=== PATIENT | male | born 1955 | race Caucasian/White ===

== ENCOUNTER 2020-03-13 09:05 | Outpatient (CLI) | payer MEDICARE, OTHER, SELFPAY ==
--- NOTE | ~2020-03-13 | PE_ITS ---
EXAMINATION: PET skull to mid thigh DATE: 03/13/2020 10:53 INDICATION: Lung cancer TECHNIQUE: Blood glucose level was 104 mg/dL. 10.485 mCi of 18-fluorodeoxyglucose (18-FDG) was admini stered i.v. Low dose computed tomography (CT) images were acquired from the base of the brain to the proximal thighs for attenuation correction and anatomic localization. Positron emission tomography (P ET) images were acquired in the same distribution beginning 52 minutes after injection. The dose-philip th product (DLP) was 288.63 mGy-cm. COMPARISON: None FINDINGS: Head/neck: FDG activity in the parotid and submandibular glands, the base of the tongue, the pharynx, and the thyroid without suspicious CT correlate is likely physiologic. No abnormal FDG uptake is yue ntified. Chest: There is severe emphysema. An 8mm nodule is present in the right lower lobe which demonstrates low-level FDG uptake with an SUV max of 1.4, or consistent with infection or inflammation rather micki n malignancy. There is a 5 mm nodule of the right upper lobe on image 253 without FDG uptake. A 6 mm nodule of the left upper lobe on image 237 also does not demonstrate FDG uptake. There is no pleural effusion or pneumothorax. Calcified coronary artery atherosclerosis is noted. No pathologically enlar ged thoracic lymph nodes are identified. The heart size is normal. There is a moderate-sized sliding hiatal hernia. Abdomen/pelvis/proximal thighs: Physiologic FDG activity is present in the bowel and urinary tract. T here is greater than expected FDG uptake along the greater curvature of the stomach with questionable associated wall thickening, somewhat difficult to assess in the absence of gastric distention. There is a 3.6 cm cyst in liver segment Puneet. The spleen, pancreas, gallbladder, and adrenal glands are nor mal. There is a 1.7 cm cyst of the left kidney. The right kidney is unremarkable. No pathologically e nlarged abdominal or pelvic lymph nodes are identified. There is no free intraperitoneal gas or evide nce of bowel obstruction. There is calcified atherosclerosis of the aorta and many of the other arter ies. There is mild circumferential thickening of the bladder wall which may be due to incomplete dist ention, chronic cystitis, or chronic outlet obstruction. Musculoskeletal: No abnormal FDG uptake is identified. IMPRESSION: 1. 8mm nodule of the right lower lobe with low-level FDG uptake, more consistent with infection/infla mmation than malignancy. Follow-up CT in three months is recommended. 2. Severe emphysema. 3. Greater than expected FDG uptake in the greater curvature of the stomach. Findings could be physio logic and related to incomplete distention however consider further evaluation with endoscopy. Reviewed, dictated and finalized at location A. IMPRESSION: 1. 8mm nodule of the right lower lobe with low-level FDG uptake, more consisten t with infection/inflammation than malignancy. Follow-up CT in three months is recommended. 2. Severe emphysema. 3. Greater than expected FDG uptake in the greater curvature of the stomach. Fi ndings could be physiologic and related to incomplete distention however consid er further evaluation with endoscopy.
[2020-03-13 09:33] LABS: Glucose Point of Care 104 (65-105)
== END 2020-03-13 09:06 | disposition home or self-care (01) ==
PROVIDERS: PCP Internal Medicine; Visit Provider Internal Medicine
DX: R91.1 Solitary pulmonary nodule (principal)
CPT/HCPCS: 78815; A9552

== ENCOUNTER 2021-08-21 01:04 | Day surgery (SDC) | payer MEDICARE, SELFPAY ==
[2021-08-12 13:12] VITALS: BMI 21.5
--- NOTE | 2021-08-20 13:19 | P.HP_ITS ---
History of Present Illness History of Present Illness Consent: Risks, benefits, and alternatives have been discussed and questions answered. Patient agrees to proceed with procedure. Chief complaint: neoplasm screening Narrative: Jeff Whitmore is a 65 year old male Referred for colon cancer screening. Review of Systems Review of Systems: All systems reviewed & are unremarkable except as noted in HPI and below PMFSH Past Medical History Medical History COPD (chronic obstructive pulmonary disease) Hypertension Tobacco abuse Social History Social History Smoking packs per day: 2 Smoking cigarettes per day: 40.0 Years smoked: 50 Smoking pack-years: 100.00 Tobacco type: cigarettes Living arrangements: with family Meds Home Medications and Allergies Home Medications Medication Instructions Recorded Confirmed Type Vitamin D2 08/12/21 History aspirin 81 mg PO DAILY 08/12/21 08/12/21 History lisinopril 20 mg PO DAILY 08/12/21 08/12/21 History Allergies Allergy/AdvReac Type Severity Reaction Status Date / Time No Known Allergies Allergy Verified 08/21/21 08:04 Exam Const: General: alert Orientation/consciousness: patient oriented x3 Resp: Auscultation: clear to auscultation bilaterally Cardio: Rhythm: regular rhythm GI: GI Palp: Yes Soft to palpation and No Tenderness to palpation present (GI) Neuro: General: patient oriented x3 Assessment and Plan Assessment and plan (1) Colon cancer screening: Code(s): Z12.11 - Encounter for screening for malignant neoplasm of colon Status: Acute Assessment and Plan: Colonoscopy with possible biopsy or polypectomy or cautery or injection of subst ances.
[2021-08-21 08:05] VITALS: BP 136/73; PULSE 68; RESP 20; TEMP 36.3; O2SAT 95; BMI 20.5
[2021-08-21] MEDS: LACTATED RINGERS 1,000 ML 150 ML IV CONT (08:09)
--- NOTE | 2021-08-21 08:20 | WPDANESEPPF ---
Anes - Initial Pre Proc Eval Procedure: Operation Date: 08/21/21 09:00 Proposed Procedures p Screening Colonoscopy - Anselmo Galloway MD Date/Time: 08/21/21 08:20 Surgeon: Anselmo Galloway MD Pre Op Diagnosis: neoplasm screening Patient Data Age: 65 Gender: M Height: 1.8 m Weight: 66.9 kg Last Vital Signs Temp 36.3 C L 08/21/21 08:05 Pulse 68 08/21/21 08:05 Resp 20 08/21/21 08:05 BP 136/73 08/21/21 08:05 Pulse Ox 95 08/21/21 08:05 Allergies Allergy/AdvReac Type Severity Reaction Status Date / Time No Known Allergies Allergy Verified 08/21/21 08:04 Home Medications Medication Instructions Recorded Confirmed Type Vitamin D2 08/12/21 History aspirin 81 mg PO DAILY 08/12/21 08/12/21 History lisinopril 20 mg PO DAILY 08/12/21 08/12/21 History Patient hx anesthesia problems: none Family hx anesthesia problems: none Results Review: All pre-operative results and documents have been reviewed as part of the pre-operative evaluation. [facility] Past Medical History Medical History COPD (chronic obstructive pulmonary disease) Hypertension Tobacco abuse Social History Social History Smoking packs per day: 2 Smoking cigarettes per day: 40.0 Years smoked: 50 Smoking pack-years: 100.00 Tobacco type: cigarettes Living arrangements: with family Anes - Eval Final PreProcedure Day of Procedure 08/21/21 08:20 Patient weight: normal Heart: regular rate and rhythm Lungs: decreased breath sounds Airway: Mallampati scale class II Neurological: alert and oriented Last oral intake: >/= 8 hours ASA classification: III Emergent: no Anesthetic plan: proceed Anesthesia type and monitoring: general GIVS and standard monitoring Results Review: All pre-operative results and documents have been reviewed as part of the pre-operative evaluation. Informed Consent: The patient's anesthetic plan and its attendant risks and benefits were discussed with the patient/family/POA. Questions were solicited and answers provided to the satisfaction of the patient/family/POA.
[2021-08-21 09:08] VITALS: BP 136/113; PULSE 84; RESP 18; O2SAT 97
[2021-08-21 09:18] VITALS: BP 90/53; PULSE 74; RESP 23; O2SAT 98
[2021-08-21 09:28] VITALS: BP 100/61; PULSE 75; RESP 21; O2SAT 100
== END 2021-08-21 09:39 | disposition home or self-care (01) ==
PROVIDERS: PCP Internal Medicine; Visit Provider Internal Medicine Gastroenterology
PROC: 0DJD8ZZ Inspection of Lower Intestinal Tract, Via Natural or Artificial Opening Endoscopic (ICD-10-PCS; CPT 45378; principal; 2021-08-21 09:00)
DX: Z12.11 Encounter for screening for malignant neoplasm of colon (principal); D12.2 Benign neoplasm of ascending colon; D12.8 Benign neoplasm of rectum; J44.9 Chronic obstructive pulmonary disease, unspecified; I10 Essential (primary) hypertension; F17.210 Nicotine dependence, cigarettes, uncomplicated
CPT/HCPCS: 45384; 45381; 45388; 88305; J2704; J7120

== ENCOUNTER 2024-01-02 08:48 | Outpatient (CLI) | payer MEDICARE, SELFPAY ==
--- NOTE | ~2024-01-02 | PE_ITS ---
EXAMINATION: PET skull to mid thigh DATE: 01/02/2024 11:17 INDICATION: Solitary pulmonary nodule TECHNIQUE: Blood glucose level was 107 mg/dL. 11.061 mCi of 18-fluorodeoxyglucose (18-FDG) was admini stered i.v. Low dose computed tomography (CT) images were acquired from the base of the brain to the proximal thighs for attenuation correction and anatomic localization. Positron emission tomography (P ET) images were acquired in the same distribution beginning 62 minutes after injection. Images includ ing fused PET/CT images were reconstructed in axial, coronal, and sagittal planes. Automated exposure control technique was employed. The dose-length product was 685.48mGy-cm. COMPARISON: 03/13/2020 FINDINGS: Head/neck: There is symmetric increased activity in the oral cavity, palatine tonsils, parotid glands, submandi bular glands, laryngeal muscles and ocular muscles without CT correlate, likely physiologic. There is increased FDG uptake with maximal SUV of 7.2 associated with approximately 1.7 x 1.0 cm nodule at th e cephalad right thyroid. No pathologically enlarged cervical lymphadenopathy or other suspicious foc i of increased FDG uptake in the visualized head or neck. Chest: Emphysema with chronic biapical pleural-parenchymal scarring without associated FDG activity. No sign ificant interval change attending for differences in technique in an 8-9 mm right lower lobe nodule w ith persistent mild FDG uptake with maximal SUV of 2.2 which remains less than the level of the blood pool. Decrease in size of a now 4 mm right upper lobe nodule which remains without FDG activity. Mil d scattered discoid atelectasis in both lungs. No other new or enlarging pulmonary nodules, pneumonia , pulmonary edema or pleural effusion. Heart size is normal. No pericardial effusion. Atherosclerotic coronary artery calcification. Thoracic aorta is normal in caliber. Small sliding-type hiatal hernia with mild to moderate uptake diffusely along the distal half of the thoracic esophagus without evide nt abnormal wall thickening most likely mild esophagitis related to reflux. No pathologically enlarge d or FDG avid thoracic lymphadenopathy. Abdomen/pelvis/proximal thighs: Physiologic renal accumulation and excretion of FDG activity in the kidneys, bladder and along portio ns of ureters. 1.8 cm low-attenuation photopenic left renal cyst. There is a small focus of more prom inent uptake with maximal SUV of 4.2 in the region of the caudal aspect of the gallbladder fossa with out evident correlate in either the liver or gallbladder. There does appear to be a possible gallston e in the dependent aspect of the relatively decompressed gallbladder. Otherwise normal degree and het erogenous pattern of increased uptake throughout the liver. The pancreas, spleen and bilateral adrena l glands are normal. Mild uptake scattered throughout the bowels without radiologic correlate, also l ikely physiologic. Prostatomegaly. No other abnormal foci of increased FDG uptake or pathologically e nlarged lymphadenopathy in the abdomen, pelvis or proximal thighs. Musculoskeletal: Thoracolumbar dextrocurvature with mild spondylosis. Minimal likely synovial activity along the anter osuperior margin of the left femoral neck without evident radiologic correlate. No suspicious lytic, blastic or abnormally FDG avid bone lesions. IMPRESSION: 1. No interval change in size or very mild uptake at an 8-9 mm right lower lobe nodule which given th e nearly 4 years of stability strongly favors a benign etiology or sequela of old granulomatous disea se or hamartoma. 2. 1.7 cm FDG avid right thyroid nodule. Recommend thyroid ultrasound for risk stratification. 3. Small sliding-type hiatal hernia with diffuse mild to moderate uptake along the distal half of the thoracic esophagus without evident mass or definitive wall thickening which suggests esophagitis suc h as in the setting of reflux.
[2024-01-02 09:28] LABS: Glucose Point of Care 107 mg/dl (65-105)
== END 2024-01-02 08:49 | disposition home or self-care (01) ==
PROVIDERS: PCP Internal Medicine; Visit Provider Internal Medicine
DX: R91.1 Solitary pulmonary nodule (principal); K80.20 Calculus of gallbladder without cholecystitis without obstruction; K44.9 Diaphragmatic hernia without obstruction or gangrene
CPT/HCPCS: 78815; A9552

== ENCOUNTER 2025-05-07 12:33 | Outpatient (CLI) | payer MEDICARE, SELFPAY ==
--- NOTE | ~2025-05-07 | US_ITS ---
EXAMINATION: US thyroid DATE: 05/07/2025 13:36 INDICATION: Thyroid nodule TECHNIQUE: Multiple ultrasound images of the thyroid were obtained. COMPARISON: None. FINDINGS: The right thyroid lobe measures 4.2 x 1.9 x 1.8 cm. The left thyroid lobe measures 3.6 x 1.3 x 1.1 cm. There are couple solid isoechoic wider than tall nodules with smooth margins and without echogenic foci in the superior right thyroid lobe, the larger measuring 2.3 cm in maximal diameter and the smaller measuring 9 mm (TI-RADS 3, mildly suspicious , FNA if >=2.5 cm, annual followup is >=1.5 cm) . There is normal echotexture, echogenicity and vascular flow throughout the remainder of the thyroid gland. IMPRESSION: 1. A couple TI RADS 3 nodules in the right thyroid lobe larger measuring 2.3 cm for which annual ultrasound follow-up would be recommended. Reviewed, dictated and finalized at location A.
--- NOTE | ~2025-05-07 | CT_ITS ---
EXAMINATION:CT lung screening DATE: 05/07/2025 13:06 INDICATION: Personal history of nicotine dependence. TECHNIQUE: Computed tomography (CT) of the chest was performed without intravenous contrast. Automated exposure control and iterative reconstruction technique were employed. The dose-length product (DLP) was 79.97 mGy-cm. COMPARISON: PET/CT 03/13/2020 FINDINGS: There is scarring at the lung apices. There is moderate emphysema. There are a few scattered nodules measuring up to 3 mm. There are a few scattered stable 4 mm nodules. There is a 9 mm nodule in right lower lobe, stable from 03/13/2020. There is mild bronchiectasis in right middle lobe. There is a stable 5 mm nodule in right upper lobe. There is a stable 5 mm nodule in right upper lobe. No pleural effusion. The heart size is normal. There are coronary artery calcifications. No pericardial effusion. There is a small sliding hiatal hernia. There is a 4.4 cm cyst in the liver. There is mild t horacic spondylosis. There is a chronic compression fracture of T11. IMPRESSION: 1. Lung-RADS category 2: Benign appearance or behavior. Continue annual screening with noncontrast low-dose chest CT in 12 months. Reviewed, dictated and finalized at location E. IMPRESSION: 1. Lung-RADS category 2: Benign appearance or behavior. Continue annual screeni ng with noncontrast low-dose chest CT in 12 months.
--- OUTSIDE RECORDS SUMMARY | 2025-05-07 14:14 | XMS_ITS | Data Portability ---
Author Organization [facility] [employer], Main Office Address [address] [place] [address] Assessment No assessment recorded. Plan of Treatment Reminders Order Date Submit Date Provider Last Modified By Organization Details Last Modified Time Details Appointments Any 15 2025 09:30A M Jefe Olson MD Not available Not available Not available Lab TSH, serum or plasma [address] (Lab), [address] [place], [address], 01/04/2025 14:17:04 PTH (parathyr oid hormone), intact + calcium, serum or plasma [address] (Lab), [address] [place], [address], 01/04/2025 14:17:03 PSA, serum or plasma [address] (Lab), [address] [place], [address], 01/04/2025 14:17:04 unlisted lab - CBC study [address] (Lab), [address] [place], [address], 01/04/2025 14:17:04 vitamin D, 25-hydrox y, total, serum [address] (Lab), [address] [place], [address], 01/04/2025 14:17:04 CMP, serum or plasma 2024 025 [facility] (Lab), [address] [place], [address], 12/24/2024 18:25:43 Referral None recorded. Procedures None recorded. Surgeries None recorded. Imaging LDCT, chest, for lung cancer screening - Please call patient to schedule. [email or web address] [place] [address] (Imaging), [address] [facility] [address] [place] [address], [phone], 01/22/2025 12:34:48 PET-CT, skull base to mid-thigh scan - approved [id number] 12/27/23-2023 [email or web address] [place] [address] (Imaging), [address] [facility] [address] [place] [address], [phone], 01/03/2024 09:03:11 Medication Orders lisinopri l 20 mg-hydroc hlorothia zide 12.5 mg tablet 2024 025 MEALLY [facility], [address], [id number], 08/21/2024 14:57:10 Patient TargetsNo targets recorded. Patient Instructions Encounter Date Encounter Id Patient Instructions Last Modified By Organization Details Last Modified Time 03/19/2024 [id number] dementia rating scale-2* Not available 03/19/2024 14:12:31 depression screening* Not available 03/19/2024 14:12:31 alcohol misuse* Not available 03/19/2024 14:12:31 multi-dimensiona l health assessment questionnaire* Not available 03/19/2024 14:12:31 Personalized a lt Plan and Screening Recommendations Advance Directives - Do you have one? Yes You have indicated that you are capable of preparing your advance care directive Advance Directives - Do we have your advance directive on file in your health record? No, please bring in a copy at your earliest convenience Primary Prevention/Interven tion (prevents or decreases the chance of common diseases from occurring) Smoking Risk: Smoker Refer to attached smoking cessation handouts Alcohol Misuse Screening: Negative Weight: Appropriate Physical activity: Appropriate physical activity Nutrition: Average Refer to attached handout Heart-Healthy Diet: After Your Visit Fall Risk (screened today): Low Vaccines Pneumococcal: No further needed Influenza: Your next one in the fall of this year Chronic Disease Risks Stroke: Low Risk Active diagnosis, Continue current treatment plan Heart Attack: Low risk I have no recommendations Clogging of the Arteries: Low risk I have no recommendations Diabetes: Low Risk I have no recommendations Secondary Prevention/Interven tion (detects treatable diseases before they may cause symptoms, disability, or ) Prostate Cancer Screening: Your next PSA in:2024 Colon Cancer Screening: Date Screening Last Performed: Eye Disease Screening: No Eye exam necessary Dementia Risk: Low I have no recommendations Depression Screening: Negative I have no recommendations [email or web address] Not available 03/19/2024 11:17:00 Reason for Referral None Reported. Results Created Date Observation Date Name Description Value Unit Range Abnormal Flag Note LastModifiedBy Organization Detail LastModifiedTime 11/14/19 24 11/14/2023 COMPR EHENS ROMEL METAB OLIC PANEL sodium 138 mmol/ L 137-14 5 Not Available [facility] (Lab) [address] [place], [address], 11/14/2023 21:05:55 11/14/1911/14/2023 COMPR EHENS ROMEL METAB OLIC PANEL potassium 4.7 mmol/ L 3.5-5. 1 Not Available [facility] (Lab) [address] [place], [address], 11/14/2023 21:05:55 11/14/19 24 11/14/2023 COMPR EHENS ROMEL METAB OLIC PANEL chloride 100 mmol/ L 98-107 Not Available [facility] (Lab) [address] [place], [address], 11/14/2023 21:05:55 11/14/19 24 11/14/2023 COMPR EHENS ROMEL METAB OLIC PANEL carbon dioxide 32 mmol/ L 22-30 high Not Available [facility] (Lab) [address] [place], [address], 11/14/2023 21:05:55 11/14/19 24 11/14/2023 COMPR EHENS ROMEL METAB OLIC PANEL anion gap 10.7 mmol/ L 14-22 low Not Available [facility] (Lab) [address] [place], [address], 11/14/2023 21:05:55 11/14/19 24 11/14/2023 COMPR EHENS ROMEL METAB OLIC PANEL glucose 91 mg/dL 70-99 Not Available [facility] (Lab) [address] [place], [address], 11/14/2023 21:05:55 11/14/19 24 11/14/2023 COMPR EHENS ROMEL METAB OLIC PANEL BUN 16 mg/dL 8-19 Not Available [facility] (Lab) [address] [place], [address], 11/14/2023 21:05:55 11/14/19 24 11/14/2023 COMPR EHENS ROMEL METAB OLIC PANEL creatinine 1.20 mg/dL 0.66-1 .25 Not Available [facility] (Lab) [address] [place], [address], 11/14/2023 21:05:55 11/14/19 24 11/14/2023 COMPR EHENS ROMEL METAB OLIC PANEL GFR 60 Refer ence Range : [place] ge GFR Healt hy Adult : >60 mL/mi n/1.7 3 m2 Chron ic Kidne y Disea se: 15-60 mL/mi n/1.7 3 m2 Kidne y Failu re: <15/m L/min /1.73 m2 www.n iddk. nih.g ov The MDRD study equat ion has not been valid ated in child joel <18 years of age; pregn ant women ; the elder ly >85 years of age; or in some racia l or ethni c subgr oups, such as Hispa nics. Outsi de the valid ated cielo eters , estim ated GFR is less accur ate, requi ring clini larry judgm ent on a case- by-ca se basis . Clini larry inter preta tion for other races and ages must be made by the clini jose. The MDRD study equat ion has not been valid ated for the evalu ation of serum creat inine relat ed to nutri uriel l statu s or medic ation usage . For perso ns <18 years of age, a pedia tric GFR calcu lator is avail able on the [facility] websi te: https ://aida altman.o rg/pr ofess ional s/kdo qi/gf r_cal culat or Not Available [facility] (Lab) [address] [place], [address], 11/14/2023 21:05:55 11/14/19 24 11/14/2023 COMPR EHENS ROMEL METAB OLIC PANEL alkaline phosphatase 148 U/L 38-[address] [facility] (Lab) [address] [place], [address], 11/14/2023 21:05:55 11/14/19 24 11/14/2023 COMPR EHENS ROMEL METAB OLIC PANEL alanine aminotransfe rase 13 U/L 0-50 Not Available [facility] (Lab) [address] [place], [address], 11/14/2023 21:05:55 11/14/19 24 11/14/2023 COMPR EHENS ROMEL METAB OLIC PANEL aspartate aminotransfe rase 23 U/L 15-46 Not Available [facility] (Lab) [address] [place], [address], 11/14/2023 21:05:55 11/14/19 24 11/14/2023 COMPR EHENS ROMEL METAB OLIC PANEL bilirubin, total 1.00 mg/dL 0.20-1 .30 Not Available [facility] (Lab) [address] [place], [address], 11/14/2023 21:05:55 11/14/19 24 11/14/2023 COMPR EHENS ROMEL METAB OLIC PANEL calcium 9.5 mg/dL 8.4-10 .2 Not Available [facility] (Lab) [address] [place], [address], 11/14/2023 21:05:55 11/14/19 24 11/14/2023 COMPR EHENS ROMEL METAB OLIC PANEL total protein 7.4 g/dL 6.3-8. 2 Not Available [facility] (Lab) [address] [place], [address], 11/14/2023 21:05:55 11/14/19 24 11/14/2023 COMPR EHENS ROMEL METAB OLIC PANEL albumin 4.3 g/dL 3.0-4. 4 Not Available [facility] (Lab) [address] [place], [address], 11/14/2023 21:05:55 11/14/19 24 11/14/2023 COMPR EHENS ROMEL METAB OLIC PANEL globulin 3.1 g/dL 2.6-4. 2 Not Available [facility] (Lab) [address] [place], [address], 11/14/2023 21:05:55 11/14/19 24 11/14/2023 COMPR EHENS ROMEL METAB OLIC PANEL A/G ratio 1.4 ratio 1.0-2. 0 Not Available [facility] (Lab) [address] [place], [address], 11/14/2023 21:05:55 11/14/19 24 11/14/2023 PARAT HYROI D HORM (PTH) INT.W /CA intact parathyroid hormone 45.6 pg/mL 24-78 Not Available [facility] (Lab) [address] [place], [address], 11/14/2023 21:20:57 11/14/19 24 11/14/2023 PARAT HYROI D HORM (PTH) INT.W /CA calcium 9.5 mg/dL 8.4-10 .2 Not Available [facility] (Lab) [address] [place], [address], 11/14/2023 21:20:57 11/14/19 24 11/14/2023 VITAM IN D 25-HY DROXY [id number] 46.4 NG/mL 30-100 Vitam in D Statu s: Defic ient: <20 ng/mL Insuf ficie nt: 20-29 ng/mL Suffi cient : 30-10 0 ng/mL Not Available [facility] (Lab) [address] [place], [address], 11/14/2023 21:21:32 11/14/19 24 11/14/2023 PSA SCREE N PSA medicare screen 2.46 NG/mL 0.00-4 .00 Not Available [facility] (Lab) [address] [place], [address], 11/14/2023 21:45:53 01/31/20 24 01/31/2024 CREAT ININE , I-STA T creatinine 1.1 mg/dL 0.6-1. 3 Not Available [facility] (Lab) [address] [place], [address], 02/02/2024 10:10:34 11/22/19 24 11/22/2023 LDCT, chest , for lung cance r scree jesus [facility] [address] [place] [address] [phone] Patien t Name: LYNNE HAYS Access ion #: [id number] Sex: M : 1955 0 Dictat ed By: Sandra Arriaza Attend ing Physic ann marie: MAHNAZ OLSON ER Orderi ng Physic ann marie: MAHNAZ OLSON ER Exam Date: 2023 10:14 AM Exam Name: CT LOW DOSE CNCR SCREEN ING Admitt ing Diagno sis(es ): CT Chest withou t intrav enous contra st INDICA TION: nicoti ne depend ence TECHNI QUE: Multid etecto r spiral CT of the chest was perfor med from the lung apices to the upper abdome n. Axial, su l and sagitt al multip lanar reform ats were perfor med. Radiat ion Dose : 1. Chest: CTDI volume is 1.3 mGy. Dose-l ength produc t is 55.9 mGy*cm The dose indica tors for CT are the volume Comput ed Tomogr aphy (CT) Dose Index (CTDIv ol) and the Dose Length Produc t (DLP), and are measur ed in units of mGy and mGy-cm , respec tively . These indica tors are not patien t dose, but values genera bee from the CT scanne r acquis ition factor s. The report includ es radiat ion exposu re data for exposu res receiv ed during this examin ation. Compar ani: 023 Findin gs: Lower neck: Normal thyroi d. Lungs: Biapic al scarri ng. Modera te to severe centri lobula r emphys emre. Unchan ged 0.2 cm nodule in the left lower lobe (image 183/35 6). Increa sed suspic ious spicul ated nodule in the coil repair technician omedia l right lower lobe measur es 1.1 cm (image 240/35 6). Heart/ Vascul ar Struct ures: Cardio megaly . Su ry artery calcif icatio ns. Vascul ar calcif icatio ns of the aorta. Page 1 [facility] [place] [address] [facility] n [place] [id number] Patien t Name: LYNNE HAYS Access ion #: [id number] Sex: M : 1955 [id number] Dictat ed By: Sandra Arriaza Attend ing Physic ann marie: RENATO POPE Physic ann marie: MAHNAZ OLSON ER Exam Date: 2023 10:14 AM Exam Name: CT LOW DOSE CNCR SCREEN ING Admitt ing Diagno sis(es ): Lymph Nodes: No adenop athy Pleura : No pleura l effusi on or signif icant pneumo thorax . Muscul oskele jordan: No acute osseou s abnorm ality. Soft tissue s: Normal . Upper abdome n: Segmen t 4 cyst measur es 3.7 cm. IMPRES HIGINIO: Increa sed suspic ious spicul ated nodule in the coil repair technician omedia l right lower lobe measur es 1.1 cm (image 240/35 6). Radiat ion optimi zation : All CT scans at this facili ty use at least one of these dose optimi zation techni ques: automa bee exposu re contro l mA and/or kV adjust ment per patien t size (inclu macie target ed exams where dose is matche d to clinic al indica tion) or iterat romel recons tructi on. Lung-R ADS Catego ry 4A: 3-sarahy h follow -up with LDCT PET-CT may be used if there is a 8 mm solid compon ent (versi on 1.1 additi on) Electr onical ly Signed by: Sandra Arriaza at 2023 22:14: 51 PM Page 2 [email or web address] [facility] (Imaging) [address] [place], [address], 11/23/2023 12:53:52 01/16/20 24 11/22/2023 LDCT, chest , for lung cance r shirley lee No observ ation record ed. [email or web address] [facility] (One Call Scheduling) [address] [place], [address], 01/18/2024 10:03:37 01/16/20 24 01/02/2024 PET-C T, skull base to mid-t high scan No observ ation record ed. [email or web address] [facility] (Imaging) [address], [place], [address], 01/18/2024 11:48:40 01/31/20 24 01/31/2024 US, head + neck, soft tissu e [facility] [address] [facility] [address], [place] [address] Patien t Name: LYNNE HAYS Access ion #: [id number] Sex: M : 1955 9 Dictat ed By: Antonella Chapman Attend ing Physic ann marie: MAHNAZ OLSON Orderi ng Physic ann marie: MAHNAZ OLSON Exam Date: 2023 07:26 AM Exam Name: US NECK HEAD SOFT TISSUE Admitt ing Diagno sis(es ): ULTRAS OUND SOFT TISSUE [facility] INDICA TION: Thyroi d nodule TECHNI QUE: Multip le real time sonogr aphic images of the thyroi d were obtain ed. COMPAR ANI: Prior exam dated none FINDIN GS: The right thyroi d gland measur es 5.3 x 2.8 x 1.9 cm. The left thyroi d gland measur es approx imatel y 4.5 x 2.4 x 1.3 cm. The isthmu s measur es 0.3 cm. There is a TI-RAD S 3 nodule in the right thyroi d gland measur ing 2.4 x 1.5 x 1.5 cm. IMPRES HIGINIO: 1. A 2.4 cm TI-RAD S 3 nodule in the right thyroi d gland. Recomm end follow -up ultras ound in 1 year. [place] an Katie dumont of Radiol ogy TI-RAD S Catego lavern and Recomm endati ons (2017) : TR1: 0 points , Benign , No FNA TR2: 2 points , Not suspic ious, No FNA TR3: 3 points , Mildly suspic ious, FNA if > or = 2.5 cm, Follow if > or = 1.5 Page 1 [facility] [address], [place] [address] Patien t Name: LYNNE HAYS Access ion #: [id number] Sex: M : 1955 9 Dictat ed By: Antonella Chapman Attend ing Physic ann marie: RENATO POPE Orderrajni ng Physic ann marie: MAHNAZ OLSON ER Exam Date: 2023 07:26 AM Exam Name: US NECK HEAD SOFT TISSUE Admitt ing Diagno sis(es ): cm TR4: 4-6 points , Modera tely Suspic ious, FNA if > or = 1.5 cm, Follow if > or = 1.0 cm TR5: 7+ points , Highly Suspic ious, FNA if > or = 1.0 cm, Follow if > or = 0.5 cm Follow -up ultras ound guidel bo: TR5: yearly for 5 years, if no growth or change in TI-RAD S level TR4: at 1, 2, 3 and 5 years, if no growth or change in TI-RAD S level TR3: at 1, 3 and 5 years, if no growth or change in TI-RAD S level If increa sed but below thresh old for FNA, repeat in one year. Source : ACR Thyroi d Imagin g, Report ing and Data System (TI-RA DS): White Paper of the ACR TI-RAD S Commit presley. Sage et al., J Am Enrrique Radiol 2017;1 4:587- 595. Electr onical ly Signed by: Antonella Chapman at 2023 10:19: 24 AM Page 2 [facility] (Imaging) [address] [place], [address], 02/09/2024 18:02:32 01/31/20 24 01/31/2024 CT, liver , w/wo contr ast [facility] [address] [place] [address] Patien t Name: LYNNE HAYS Access ion #: [id number] Sex: M : 1955 9 Dictat ed By: Tor Funes Attend ing Physic ann marie: MAHNAZ OLSON Orderrajni gilliam Physic ann marie: DOUGIE OLSONYAYO ER Exam Date: 2023 07:55 AM Exam Name: CT ABDOME N W/WO Admitt ing Diagno sis(es ): Exam: CT ABDOME N W/WO Histor y: abnorm al findin gs on diag imagin g Compar ani Study: None availa ble at time of dictat ion. Techni que: Multid etecto r spiral CT of the abdome n was perfor med from lung bases to iliac crest. 100 cc of intrav enous contra st was admini stered during this examin ation. Portal venous imagin g was obtain ed. Axial, su l and sagitt al multip lanar reform ats were perfor med by the techno logist on a [employer] workst ation. Radiat ion Dose : CT Dose: CTDI volume is 22 mGy. Dose-l ength produc t is 714 mGy*cm Findin gs: Lung Bases: No acute or signif icant lung base findin g. Normal heart size. No pleura l or perica rdial effusi on. Liver: Stable simple cyst of the right hepati c lobe. Gallbl adder and Biliar y Tree: Cholel ithias is noted withou t second zen findin gs of cholec ystiti s or biliar y obstru ction. Spleen : Unrema rkable Pancre as: The pancre as is normal in appear ance withou t focal lesion s or abnorm al enhanc ement. Adrena l Glands : Unrema rkable Page 1 [facility] [place] [address] [facility] [place] [address] Patien t Name: LYNNE HAYS [facility] ion #: [id number] Sex: M : 1955 9 Dictat ed By: Tor Funes Attend ing Physic ann marie: RENATO POPE Physic ann marie: MAHNAZ OLSON ER Exam Date: 2023 07:55 AM Exam Name: CT ABDOME N W/WO Admitt ing Diagno sis(es ): Kidney s: Kidney s demons trate normal symmet jovan enhanc ement withou t focal lesion s, calcul i or hydron ephros is. Visual ized Bowel: The stomac h is grossl y normal in appear ance. Small bowel and colon are normal in calibe r and distri bution . Ascite s: Absent Lympha denopa thy: No mesent devonte, retrop eriton eal or peripo rtal lympha denopa thy. Abdomi nal Wall and Mesent sarwat: Abdomi nal aorta measur s 3cm. Vascul ature: The visual ized abdomi nal aorta is normal in size and calibe r. Abdomi nal and pelvic vessel s demons trate normal enhanc ement. Muscul oskele jordan: No aggres sive focal bony lesion s, acute fractu res or disloc ation. IMPRES HIGINIO: Stable hepati c cyst. No enhanc ement. Abdomi nal aorta measur se 3cm. Radiat ion optimi zation : All CT scans at this facili ty use at least one of these dose optimi zation techni ques: automa bee exposu re contro l mA and/or kV adjust ment per patien t size (inclu macie target ed exams where dose is matche d to clinic al indica tion) or iterat romel recons tructi on. Electr onical ly Signed by: Tor Funes at 2023 11:48: 26 AM [email or web address] [facility] (One Call Scheduling) [address] [place], [address], 07/23/2024 14:46:25 Result Notes Documentation Provider Name and Address Organization Details Recorded Time Ct, Liver, W/wo Contrast : [facility] [address] [place] [address] Patient Name: LYNNE HAYS Sex: M : 1955 Dictated By: Tor Funes Attending Physician: JEFE OLSON Ordering Physician: JEFE OLSON Exam Date: 01/31/2024 07:55 AM Exam Name: CT ABDOMEN W/WO Admitting Diagnosis(es): Exam: CT ABDOMEN W/WO History: abnormal findings on diag imaging Comparison Study: None available at time of dictation. Technique: Multidetector spiral CT of the abdomen was performed from lung bases to iliac crest. 100 cc of intravenous contrast was administered during this examination. Portal venous imaging was obtained. Axial, coronal and sagittal multiplanar reformats were performed by the technologist on a separate workstation. Radiation Dose : CT Dose: CTDI volume is 22 mGy. Dose-length product is 714 mGy*cm Findings: Lung Bases: No acute or significant lung base finding. Normal heart size. No pleural or pericardial effusion. Liver: Stable simple cyst of the right hepatic lobe. Gallbladder and Biliary Tree: Cholelithiasis noted without secondary findings of cholecystitis or biliary obstruction. Spleen: Unremarkable Pancreas: The pancreas is normal in appearance without focal lesions or abnormal enhancement. Adrenal Glands: Unremarkable Page 1 [place] [address] Patient Name: LYNNE HAYS Sex: M : 1955 Dictated By: Tor Funes Attending Physician: RENATO MAYBERRY Ordering Physician: JEFE OLSON Exam Date: 01/31/2024 07:55 AM Exam Name: CT ABDOMEN W/WO Admitting Diagnosis(es): Kidneys: Kidneys demonstrate normal symmetric enhancement without focal lesions, calculi or hydronephrosis. Visualized Bowel: The stomach is grossly normal in appearance. Small bowel and colon are normal in caliber and distribution. Ascites: Absent Lymphadenopathy: No mesenteric, retroperitoneal or periportal lymphadenopathy. Abdominal Wall and Mesentery: Abdominal aorta measurs 3cm. Vasculature: The visualized abdominal aorta is normal in size and caliber. Abdominal and pelvic vessels demonstrate normal enhancement. Musculoskeletal: No aggressive focal bony lesions, acute fractures or dislocation. IMPRESSION: Stable hepatic cyst. No enhancement. Abdominal aorta measurse 3cm. Radiation optimization: All CT scans at this facility use at least one of these dose optimization techniques: automated exposure control mA and/or kV adjustment per patient size (includes targeted exams where dose is matched to clinical indication) or iterative reconstruction. Brenda Oliverio rivas, [place] - [facility] 07/23/2024 14:46:25 Problems Name Problem SNOMED Code Status Onset Date Resolution Date Notes Provider Name and Address Organization Details Recorded Time Chronic obstructi ve pulmonary disease 24539164 Active Vicki jones RMA null, [place] - [facility] 5 11:41:20 Tobacco smoking consumpti on unknown 148986273 Active Not Available [facility] 3 03:23:00 Abnormal weight loss 335611815 Completed Not Available [facility] 3 03:23:01 Vitamin D deficienc y 16218090 Active Vicki jones RMA null, [place] - [facility] 5 11:41:20 Essential hypertens ion 46785019 Active Jefe Olson MD [address] [place] [address], [address] , [facility] - [facility] 5 11:56:09 Hypercalc emia 41521381 Active Vicki jones RMA null, [place] - [facility] 5 11:41:20 Hyperpara thyroidis m 92854083 Active Vicki jones RMA null, [place] - [facility] 5 11:41:20 Ex-smoker 9902719 Completed Not Available [facility] 3 03:23:01 Smoker 41912373 Active 2020 Not Available [facility] 3 03:23:01 Polyp of colon 81330270 Active 2021 Vicki jones RMA null, [place] - [facility] 5 11:41:20 Multiple nodules of lung 836129911 Active 2021 Not Available [facility] 3 03:23:01 Cramp in lower limb 271225492 Completed 202102/19/2022 Not Available [facility] 3 03:23:01 Cramp in lower limb 865311393 Completed 202107/27/2022 Not Available [facility] 3 03:23:01 Nodule of lung 516531606 Active 2022 Jefe Olson MD [address] [facility], [place] [address], [place], [address] , [facility] 5 11:56:09 Solitary nodule of lung 801315750 Active 2023 Subha Pollard LPN null, [facility] 4 12:48:05 Computed tomograph y result abnormal 784501025 Active 2023 Subha Pollard LPN null, [facility] 4 11:50:15 Thyroid nodule 843806284 Active 2023 Vicki jones RMA null, [facility] 5 11:41:20 Liver cyst 08332633 Active 2024 Vicki jones RMA null, [facility] 5 11:41:20 Tobacco dependenc e caused by cigarette s 87197069914 985183 Active 2024 Jefe Olson MD [address] [facility] [address], [place], [address] , [facility] 5 09:38:50 Goiter 3594492 Active 2024 Jefe Olson MD [address] [facility] [address], [place], [address] , [facility] 5 09:40:56 Finding of thyroid gland 263730846 Active 2024 Sneha Miller MA null, [facility] 5 09:50:53 Mass of neck 528026356 Active 2024 Sneha Miller MA null, [facility] 5 10:10:04 Malignant neoplasm of thyroid gland 212831698 Active 2024 Sneha Miller MA null, [facility] 10:11:20 Papillary thyroid carcinoma 650351648 Active 2024 LINA Villar, [facility] 10:11:20 Problem Notes None recorded. Procedures Surgical History Date Name Laterality Status Provider Name and Address Organization Details Recorded Time 03/19/20 Medicare Wellness CPT Code, subsequent completed Alyson Shaffer RN [facility] 03/19/2024 10:51:28 Hernia Repair completed Not Available [facility] 09/22/2022 03:14:37 Cardiac Cath completed Not Available [facility] 09/22/2022 03:14:37 Tonsillectomy completed Not Available [facility] 09/22/2022 03:14:37 Imaging Results None recorded. Procedure Notes None recorded. Medical Equipment None Reported. Medications Name Sig Start Date Stop Date Status Note LastModified by Organization Details LastModified Time acetamino phen 325 mg tablet TAKE 2 TABLETS BY MOUTH EVERY 6 HOURS 11/26 completed Not Available Not Available Not Available lisinopri l 20 mg-hydroc hlorothia zide 12.5 mg tablet TAKE 1 TABLET BY MOUTH DAILY 2024 active TYRESE 12/20/24 NOV 04/23/25 ok to rf Not Available Not Available Not Available lisinopri l 20 mg tablet TAKE 1 TABLET BY MOUTH DAILY 08/21 completed Not Available Not Available Not Available amlodipin e 10 mg tablet TAKE 1 TABLET BY MOUTH EVERY DAY 11/[address] Hays Not Available Not Available Not Available ergocalci ferol (vitamin D2) 1,250 mcg (50,000 unit) capsule active Not Available Not Available Not Available oxycodone 5 mg tablet 11/26 completed Not Available Not Available Not Available Calcium 500 02/23 completed Not Available Not Available Not Available aspirin 81 mg effervesc ent tablet Take 1 tablet every day by oral route. 2013 active Not Available Not Available Not Avai lable Vitamin D2 2018 active Not Available Not Available Not Avai lable Vitals Date Recorded Body height Body mass index (BMI) Body weight Body temperature Heart rate Oxygen saturation Oxygen saturation in Arterial blood by Pulse oximetry Systolic And Diastolic Provider Name and Address Organization Details Last Updated DateTime 5 179.07 cm 19.8 kg/m2 66363.9 3 g 97.3 [degF] 91 /min 94.01 % 94.01 % 144/72 mm[Hg] Vicki craft Alexsander [facility] [employer] [facility] 5 14:39:00 Date Recorded Body height Body mass index (BMI) Body weight Body temperature Heart rate Oxygen saturation Oxygen saturation in Arterial blood by Pulse oximetry Systolic And Diastolic Provider Name and Address Organization Details Last Updated DateTime 4 179.07 cm 20.9 kg/m2 12842.9 5 g 98.8 [degF] 55 /min 97 % 97 % 118/76 mm[Hg] Pam Duron [facility] [employer] [facility] 4 11:12:45 Date Recorded Body height Body mass index (BMI) Body weight Body temperature Oxygen saturation Oxygen saturation in Arterial blood by Pulse oximetry Heart rate Systolic And Diastolic Provider Name and Address Organization Details Last Updated DateTime 5 179.07 cm 19.9 kg/m2 21436.5 2 g 97.8 [degF] 95 % 95 % 75 /min 124/67 mm[Hg] Clarissa andino [facility] [employer] [facility] 5 09:22:50 Date Recorded Body height Body mass index (BMI) Body weight Body temperature Heart rate Oxygen saturation Oxygen saturation in Arterial blood by Pulse oximetry Systolic And Diastolic Provider Name and Address Organization Details Last Updated DateTime 4 179.07 cm 20.2 kg/m2 74239.7 1 g 97.3 [degF] 72 /min 96 % 96 % 142/80 mm[Hg] Vicki craft [facility] [employer] [facility] 4 10:33:59 Date Recorded Pain severity - 0-10 verbal numeric rating [Score] - Reported Provider Name and Address Organization Details Last Updated DateTime 03/19/2024 0 Alyson Shaffer RN [facility] [employer] [facility] 03/19/2024 11:08:16 Date Recorded Body height Body mass index (BMI) Body weight Body temperature Heart rate Oxygen saturation Oxygen saturation in Arterial blood by Pulse oximetry Systolic And Diastolic Provider Name and Address Organization Details Last Updated DateTime 5 179.07 cm 20.1 kg/m2 27991.1 2 g 96.9 [degF] 63 /min 96 % 96 % 120/64 mm[Hg] DAVID Epps [place] [facility] [employer] [facility] 5 11:40:47 Social History Question Answer Notes LastModified by Organization Details LastModified Time Tobacco Smoking Status Current Every Day Smoker Not Available [employer] 09/22/2022 03:13:18 Do You Have An Advance Directive? Yes Request For Copy 03/19/2024 [email or web address] Information not available 03/19/2024 How Many Years Have You Consumed Alcohol? 57 Approx Age Of 16 [email or web address] Information not available 03/19/2024 Are You Blind Or Do You Have Difficulty Seeing? No MIGRATION.030 [id number] Information not available 09/22/2022 Is Blood Transfusion Acceptable In An Emergency? Yes [email or web address] Information not available 03/19/2024 What Is Your Level Of Caffeine Consumption? Moderate MIGRATION.030 [id number] Information not available 09/22/2022 What Is Your Code Status? DNR [email or web address] Information not available 03/19/2024 In The 14 Days Before Symptom Onset, Have You Had Close Contact With A Laboratory-conf irmed COVID-19 While That Case Was Ill? No Not Applicable [email or web address] Information not available 03/19/2024 In The 14 Days Before Symptom Onset, Have You Had Close Contact With A Person Who Is Under Investigation For COVID-19 While That Person Was Ill? No Not Applicable [email or web address] Information not available 03/19/2024 Are You Deaf Or Do You Have Serious Difficulty Hearing? No MIGRATION.0301 [id number] Information not available 09/22/2022 What Type Of Diet Are You Following? REGULAR MIGRATION.030 [id number] Information not available 09/22/2022 Which Illicit Or Recreational Drugs Have You Used? None MIGRATION.030 [id number] Information not available 09/22/2022 What Is The Highest Grade Or Level Of School You Have Completed Or The Highest Degree You Have Received? [id number] MIGRATION.030 [id number] Information not available 09/22/2022 How Many Days Of Moderate To Strenuous Exercise, Like A Brisk Walk, Did You Do In The Last 7 Days? 3 [email or web address] Information not available 03/19/2024 On Those Days That You Engage In Moderate To Strenuous Exercise, How Many Minutes, On Average, Do You Exercise? 30 [email or web address] Information not available 03/19/2024 Have There Been Any Changes To Your Family Or Social Situation? No MIGRATION.0301 [id number] Information not available 09/22/2022 What Is The Fluoride Status Of Your Home? Fluoridated [email or web address] Information not available 03/19/2024 Are There Any Guns Present In Your Home? Yes [email or web address] Information not available 03/19/2024 Do You Use Insect Repellent Routinely? Yes Uses Coils And Fogger At Home [email or web address] Information not available 03/19/2024 Where Do You Live? SingleLevelHouse MIGRATION.0301 [id number] Information not available 09/22/2022 Presence Of Domestic Violence No [email or web address] Information not available 03/19/2024 Guns Present In The Home? Yes [email or web address] Information not available 03/19/2024 Are You Able To Care For Yourself? Yes [email or web address] Information not available 03/19/2024 Are You Blind Or Do Yo Have Difficulty Seeing? No [email or web address] Information not available 03/19/2024 Are You Deaf Or Do You Have Serious Difficulty Hearing? No [email or web address] Information not available 03/19/2024 General Stress Level? Low [email or web address] Information not available 03/19/2024 Live Alone Of With Others? With Others [email or web address] Information not available 03/19/2024 Do You Have A Medical Power Of Grade And Center Marker? Yes [email or web address] Information not available 03/19/2024 What Was The Date Of Your Most Recent Tobacco Screening? 04/23/2025 [email or web address] Information not available 04/23/2025 How Many Children Do You Have? 6 [email or web address] Information not available 03/19/2024 What Is Your Current Pack Years? [email or web address] MIGRATION.0301 [id number] Information not available 09/22/2022 Have You Ever Been Counseled For Unhealthy Alcohol Use? No [email or web address] Information not available 03/19/2024 Do You Have Any Pets? Yes [email or web address] Information not available 03/19/2024 What Is Your Relationship Status? [email or web address] Information not available 03/19/2024 Do You Use Your Seat Belt Or Car Seat Routinely? Yes MIGRATION.0301 [id number] Information not available 09/22/2022 Are You Sexually Active? No [email or web address] Information not available 03/19/2024 Do You Have Smoke And Carbon Monoxide Detectors In Your Home? Yes MIGRATION.0301 [id number] Information not available 09/22/2022 At What Age Did You Start Smoking Tobacco? 14 MIGRATION.0301 [id number] Information not available 09/22/2022 Are You Passively Exposed To Smoke? No [email or web address] Information not available 03/19/2024 Are There Any Smokers In Your House? Yes MIGRATION.0301 [id number] Information not available 09/22/2022 How Much Tobacco Do You Smoke? 2 PPD Has Reduced To Almost A Pack A Day [email or web address] Information not available 03/19/2024 What Types Of Sporting Activities Do You Participate In? None [email or web address] Information not available 03/19/2024 Do You Use Sunscreen Routinely? No [email or web address] Information not available 03/19/2024 Has Tobacco Cessation Counseling Been Provided? Yes Handout Provided [email or web address] Information not available 03/19/2024 On What Date Was Tobacco Cessation Counseling Provided? 03/19/2024 [email or web address] Information not available 03/19/2024 How Many Years Have You Smoked Tobacco? 55 [email or web address] Information not available 12/20/2024 Have You Recently Traveled Abroad? Yes Cruise In [place]. [email or web address] Information not available 03/19/2024 Do You Have Difficulty Walking Or Climbing Stairs? No MIGRATION.0301 [id number] Information not available 09/22/2022 Do You Have Any Dietary Restrictions? No MIGRATION.0301 [id number] Information not available 09/22/2022 How Many Days In The Past Year Have You Consumed 5 Or More Drinks? 0 [email or web address] Information not available 03/19/2024 Sex: Unknown Functional Status Question Answer Note LastModified by Organizat ion Details LastModified Time Do you use any illicit or recreational drugs? No MIGRATION.54527 06655 Information not available 09/22/2022 Do you or have you ever used any other forms of tobacco or nicotine? No MIGRATION.49193 73205 Information not available 09/22/2022 What is your level of alcohol consumption? Occasional states very rarely [email or web address] Information not available 03/19/2024 Are you currently employed? No [email or web address] Information not available 03/19/2024 Do you have transportation difficulties? No MIGRATION.63132 61863 Information not available 09/22/2022 Are you able to walk independently without assistance or assistive devices? YESWOREST MIGRATION.00058 63665 Information not available 09/22/2022 Do you have difficulty doing errands alone? No MIGRATION.94725 83104 Information not available 09/22/2022 Are you able to care for yourself independently? Yes MIGRATION.22015 47205 Information not available 09/22/2022 What is your occupation? [employer]- retired MIGRATION.24885 23076 Information not available 09/22/2022 Do you have difficulty dressing, bathing, grooming, or toileting? No MIGRATION.22557 08266 Information not available 09/22/2022 What is your exercise level? Occasional [email or web address] Information not available 03/19/2024 Mental Status Question Answer Note LastModified by Organizat ion Details LastModified Time Do you feel stressed (tense, restless, nervous, or anxious, or unable to sleep at night)? [id number] MIGRATION.[id number] 26 Information not available 09/22/2022 Do you have difficulty concentrating, remembering or making decisions? No MIGRATION.[id number] 26 Information not available 09/22/2022 Family History Relationship Description Onset Age of this Age Resolved Age Notes LastModified by Organization Details LastModified Time Father Heart disease MIGRATION.746 [id number] Not available 09/22/2022 03:14:45 Medical History No medical history recorded. Immunizations Vaccine Type Date Status Note Provider Nam e and Address Organization Details Recorded Time COVID-19, mRNA, LNP-S, PF, 30 mcg/0.3 mL dose 1 completed Not Available [facility] 04/23/2025 11:38:57 COVID-19, mRNA, LNP-S, PF, 30 mcg/0.3 mL dose 1 completed Not Available [facility] 04/23/2025 11:38:57 COVID-19, mRNA, LNP-S, PF, 30 mcg/0.3 mL dose 1 completed Not Available [facility] 04/23/2025 11:38:57 Influenza, high-dose, quadrivalent, PF 1 completed Not Available [facility] 09/22/2022 03:31:53 tetanus toxoid, adsorbed 3 completed Not Available [facility] 09/22/2022 03:31:53 Influenza, high-dose, quadrivalent, PF 2 completed Not Available [facility] 09/22/2022 03:31:53 pneumococcal polysaccharide PPV23 1 completed Not Available [facility] 09/22/2022 03:31:53 Influenza, high-dose, quadrivalent, PF 0 completed Not Available [facility] 09/22/2022 03:31:53 Pneumococcal conjugate PCV 13 0 completed Not Available [facility] 09/22/2022 03:31:54 Influenza, high-dose, quadrivalent, PF 3 completed Jefe Olson MD [address] [place] [address], [address], [facility] 07/01/2023 11:53:34 Past Encounters Encounter ID Performer Location Encounter Start Date Encounter Closed Date Diagnosis/Indication Diagnosis SNOMED-CT Code Diagnosis ICD10 Code Diagnosis IMO Codes Diagnosis Note [id number] Jefe Olson MD [facility] Internal [address] [address] 10/27/2020 00:00:00 10/27/2020 09:57:57 [id number] Jefe Olson MD [facility] Internal [facility] [address] [place] [address] 02/23/2021 00:00:00 02/23/2021 17:34:40 [id number] Jefe Olson MD [facility] Med [address] [address] 06/24/2021 00:00:00 06/24/2021 11:21:45 [id number] Jefe Olson MD [facility] Internal [address] [address] 10/23/2021 00:00:00 10/23/2021 10:41:43 [id number] Jefe Olson MD [facility] Internal [address] [facility] [place] [address] 03/17/2022 00:00:00 03/17/2022 17:26:52 [id number] [facility] [address] [facility] [place] [address] 07/07/2022 00:00:00 07/07/2022 15:49:22 [id number] Jefe Olson MD [facility] Internal [address] [facility] [place] [address] 11/03/2022 09:40:30 11/03/2022 10:25:02 Chronic obstructive pulmonary disease 95373817 J44.9 no meds needed, no symptoms Essential hypertension 39596415 I10 watch Hyperparathyroidism 6699 9008 E21.3 labs Vitamin D deficiency 347 41725 E55.9 Adult heal th examination 904539533 Z00.00 Colonoscop y- 08/15PSA- 10/2021LDC T- re vnar - 02/2020.pn eumovax 23 03/14Flu- 05/2021, 2Cov id Vacc 10/14/20 Screening for malignant neoplasm of prostate 569692736 Z12.5 Multiple n odules of lung 625132668 R91.8 [id number] Jefe Olson MD [place] [facility] [place] [address] 03/01/2023 10:35:23 03/01/2023 11:27:06 Chronic obstructive pulmonary disease 70134282 J44.9 no meds needed, no symptoms Essential hypertension 57934284 I10 watch Nodule of lung 690927004 R91.1 gets LDCT, had PET Hyperparathyroidism 6699 9008 E21.3 labs Polyp of colon 61429290 K63.5 Vitamin D deficiency 347 53361 E55.9 OTC Hypercalcemia 97871969 E 83.52 BETTER [id number] Jefe Olson MD [facility] Internal Med [address] [place] [address] 07/01/2023 11:23:47 07/01/2023 11:58:38 Chronic obstructive pulmonary disease 60811415 J44.9 no meds needed, no symptoms Essential hypertension 65620117 I10 watch Nodule of lung 777025216 R91.1 gets LDCT, had PET Hyperparathyroidism 6699 9008 E21.3 Polyp of colon 55739993 K63.5 Vitamin D deficiency 347 51252 E55.9 OTC Hypercalcemia 05477794 E 83.52 labs 11/14 Adult [facility] examination 237092378 Z00.00 Colonoscop y- 08/15PSA- 10/2031LDC T- re vnar 02/2020.pn eumovax 23 03/14Flu- 05/2021, 06/2022 , 07/01/2023 ovid Vacc 10/14/20 Administra tion of influenza vaccine 08172729 Z23 [id number] Jefe Olson MD [facility] Internal [facility] [address] [facility] [place] [address] 11/14/2023 09:44:36 11/14/2023 10:23:16 Chronic obstructive pulmonary disease 81076607 J44.9 no meds needed, no symptoms Essential hypertension 69813639 I10 under control Nodule of lung 558848452 R91.1 gets LDCT, had PET in the past Hyperparathyroidism 6699 9008 E21.3 labs Polyp of colon 85674471 K63.5 colonoscop y 08/15 Vitamin D deficiency 347 76825 E55.9 OTC Hypercalcemia 75913821 E 83.52 labs 11/14 Adult [facility] examination 987233355 Z00.00 Colonoscop y- 08/15 , next in 2024PS- 10/2022LDC T- 11/12/2022 Prevnar 02/2020.pn eumovax 23 03/14Flu- 05/2021, 06/2022 , 07/01/2023 ovid Vacc 10/14/20 Nicotine dependence 5629 4008 Z87.891 Screening for malignant neoplasm of prostate 503212730 Z12.5 [id number] Jefe Olson MD [facility] Internal Med [facility] [address] [facility] [place] [address] 12/12/2023 11:07:49 12/12/2023 11:31:49 Solitary nodule of lung 060597907 R91.1 nodule getting bigger, suspicious , needs more evaluation with PETAdvised to quit smoking [id number] Jefe Olson MD [facility] Internal Med [address] [facility] [place] [address] 03/19/2024 10:22:12 03/19/2024 11:06:30 Essential hypertension 91394853 I10 under control Chronic ob structive pulmonary disease 80594917 J44.9 no meds needed, no symptoms Nodule of lung 648243037 R91.1 gets LDCT, benign Hyperparathyroidism 6699 9008 E21.3 stable Polyp of colon 03004742 K63.5 colonoscop y 08/15 Vitamin D deficiency 347 57489 E55.9 OTC Hypercalcemia 33208006 E 83.52 labs 11/14 Adult [facility] examination 622528574 Z00.00 Colonoscop y- 08/15 , next in 2024PSA- 11/14/23LD CT- 11/22/23Pr evnar 13- 02/2020.pn eumovax 23 03/14Flu- 05/2021, 06/2022 , 3C ovid Vacc 10/14/20 Nicotine dependence 5629 4008 Z87.891 advised to quit Thyroid nodule 468836057 E04.1 US in a year (01/16 ) Screening for disorder 408486146 Z13.9 [id number] Jefe Olson MD [facility] Internal Med [address] [facility] [place] [address] 08/21/2024 14:32:38 08/21/2024 15:00:58 Essential hypertension 56319215 I10 add HCTZ Chronic ob structive pulmonary disease 26230080 J44.9 no meds needed, no symptoms Nodule of lung 171383131 R91.1 gets LDCT, benign Hyperparathyroidism 6699 9008 E21.3 stable Polyp of colon 50405406 K63.5 colonoscop y 08/15 Vitamin D deficiency 347 87795 E55.9 OTC Hypercalcemia 68364079 E 83.52 better Nicotine dependence 5629 4008 Z87.891 advised to quit Adult [facility] examination 546539953 Z00.00 Colonoscop y- 08/15 , next in 2024PSA- 11/14/23LD CT- 11/22/23Pr evnar 02/2020.pn eumovax 23 03/14Flu- 05/2021, 06/2022 , 07/01/2023, 4Covid Vacc 10/14/20 Thyroid nodule 795526460 E04.1 US in a year (01/16 ) Liver cyst 11079624 K76. 89 benign [id number] Jefe Olson MD [facility] Internal Med [address] [place] [address] 12/20/2024 09:15:34 12/20/2024 10:41:54 Essential hypertension 85669624 I10 BETTER Chronic ob structive pulmonary disease 91766775 J44.9 no meds needed, no symptoms Nodule of lung 664417114 R91.1 gets LDCT, benign Hyperparathyroidism 6699 9008 E21.3 stable Polyp of colon 59029951 K63.5 colonoscop y 08/15 Vitamin D deficiency 347 59377 E55.9 OTC Hypercalcemia 14963223 E 83.52 better Nicotine dependence 5629 4008 Z87.891 advised to quit Adult [facility] examination 234855219 Z00.00 Colonoscop y- 08/15 , next in 2024PSA- 11/14/23LD CT- 11/22/23Pr evnar 02/2020.pn eumovax 23 03/14Flu- 05/2021, 06/2022 , 07/01/2023, 4Covid Vacc 10/14/20 Thyroid nodule 852933163 E04.1 needs f/u ultra sound Liver cyst 85184037 K76. 89 benign Screening for malignant neoplasm of prostate 189127785 Z12.5 370200 Tobacco de pendence caused by cigarettes 6751531451 1553990 F17.461 0252629 advised to quit [id number] Jefe Olson MD [facility] Internal Med [address] [place] [address] 04/23/2025 11:37:24 04/23/2025 12:05:58 Essential hypertension 39649561 I10 under control Chronic ob structive pulmonary disease 96388998 J44.9 no meds needed, no symptoms Nodule of lung 492535088 R91.1 reorder LDCT, Hyperparathyroidism 6699 9008 E21.3 stable Polyp of colon 06010099 K63.5 colonoscop y 08/15 Vitamin D deficiency 347 56287 E55.9 OTC Hypercalcemia 71833550 E 83.52 better Nicotine dependence 5629 4008 Z87.891 advised to quit Adult heal th examination 774389638 Z00.00 Colonoscop y- 08/15 , next in 2024PSA- 01/16LDCT- 11/22/23Pr evnar 13- 02/2020.pn eumovax 23 03/14Flu- 05/2021, 06/2022 , 07/01/2023, ovid Vacc 10/14/20 Thyroid nodule 350209602 E04.1 needs f/u ultra sound Liver cyst 18220212 K76. 89 benign Tobacco de pendence caused by cigarettes 6505613095 4815818 F17.748 [id number] advised to quit Health Concerns Section Related Observation LastModified by Organization Detai ls LastModified Time None Recorded Concern Status LastModified by Organization Details LastModified Time None Recorded Advance Directives Directive Y: request for copy 4 Payers Insurance Date Sequence Insurance Name Policy Number Policy Bell Covered Member ID Bell Member ID Guarantor Name 04/24/2025 1 [facility] (MEDICARE REPLACEMENT/A DVANTAGE - PPO) [id number] Lynne Hays [id number] Lynne Hays Notes Date Note Type Note Provider Name and Address Organization Details Recorded Time 12/12/2023 text/html Pt is here today to discuss a recent LDCT scan done on 11/22/23e has a lung nodule and is getting bigger in size, according to the report looked suspicious, needs to have PET for more evaluation. He is still smoking and has been advised to quit. Jefe Olson MD [address] [place] [address], [facility] [address], [place], [address], [place] [facility] [employer] 12/12/2023 11:29:01 03/19/2024 text/html Here today for routine f/u, compliant to medsMedicare Wellness ExamPT IS NOT FASTING HTN- on meds, under controlMeds- Lisinopril 20 mg dailyCOPD - no meds needed , no significant symptomsVit D def- otcHypercalcemia/h yperparathyroidism - seen endo in the past.He has been evaluated by endocrinology, it was thought o be due to vit D def and has been replaced and now takes otc,Smoker- advised to quit. Smokes about 1 pk/dayPulm nodule- PET scan 03/13, f/u LDCT 11/14,LDCT- 11/22/23- suspicious nodule, PET scan done 01/02/24 showed possible benign Thyroid nodule- seen on PET in 01/15, needs another f/u in a yearHe had biopsy done in 2021 from her endo, no results.Colon polyp - Colonoscopy- 08/21/21 Jefe Olson MD [address], [place], [address], [facility] [employer] 03/19/2024 14:12:37 08/21/2024 text/html Here today for routine f/u, compliant to medsPT IS NOT FASTING ( [facility] ) HTN- on meds, still little highMeds- Lisinopril 20 mg dailyCOPD - no meds needed , no significant symptomsVit D def- otcHypercalcemia/h yperparathyroidism - seen endo in the past.He has been evaluated by endocrinology, it was thought o be due to vit D def and has been replaced and now takes otc,Smoker- advised to quit. Smokes about 1 pk/dayLDCT- 4Pulm nodule- PET scan 03/13, f/u LDCT 11/14,LDCT- 11/22/23- suspicious nodule, PET scan done 01/02/24 showed possible benign Thyroid nodule- seen on PET in 01/15, needs another f/u in a yearHe had biopsy done in 2021 from his endo, no results.CT neck 02/14 showed stable nodule and needs f/u in a year Hepatic cyst- CT 02/14,Colon polyp - Colonoscopy- 08/21/21 Jefe Olson MD [address], [place], [address], [facility] [employer] [facility] [employer] 08/21/2024 17:07:20 12/20/2024 text/html Here today for routine f/u, compliant to medsPT is FASTING ( [facility] [facility] HTN- under conytrolMeds- Lisinopril HCTZ 20/12.5 mg dailyCOPD - no meds needed , no significant symptomsVit D def- otcHypercalcemia/h yperparathyroidism -He has been evaluated by endocrinology, it was thought o be due to vit D def and has been replaced and now takes otc,Smoker- advised to quit. Smokes about 1 pk/dayLDCT- 4Pulm nodule- PET scan 03/13,LDCT- 11/22/23- suspicious nodule, PET scan done 01/02/24 showed benign Thyroid nodule- seen on PET in 01/15, needs another f/u in a yearHe had biopsy done in 2021 from his endo, no results.CT neck 02/14 showed stable nodule and needs f/u in a year Hepatic cyst- CT 02/14,Colon polyp - Colonoscopy- 08/21/21 Hiatal hernia and gall bladder stones seen as incidental finding on the PET, pt has no symptoms Jefe Olson MD [address], [facility] [address], [place], [address], [facility] [employer] 12/20/2024 10:10:57 04/23/2025 text/html Here today for routine f/u, compliant to meds PT IS NOT FASTING ( [facility] ) Has not had the US.Thyroid or the LDCTWilliam told pt they would call him back and never didRe faxed orders from November. Pt has copies as well HTN- under controlMeds- Lisinopril HCTZ 20/12.5 mg dailyCOPD - no meds needed , no significant symptomsVit D def- otcHypercalcemia/h yperparathyroidism -He has been evaluated by endocrinology, it was thought o be due to vit D def and has been replaced and now takes otc, labs8 are stableSmoker- advised to quit. Smokes about 1 pk/dayLDCT- 4Pulm nodule- PET scan 03/13,LDCT- 11/22/23- suspicious nodule, PET scan done 01/02/24 showed benign, LDT was ordered, will reorder Thyroid nodule- seen on PET in 01/15, needs another f/u in a yearHe had biopsy done in 2021 from his endo, no results.CT neck 02/14 showed stable nodule and needs f/u ultra sound. Hepatic cyst- CT 02/14,Colon polyp - Colonoscopy- 08/21/21 Hiatal hernia and gall bladder stones seen as incidental finding on the PET, pt has no symptoms Jefe Olson MD [address] [facility], [facility] [address], [place], [address], [place] [facility] 04/23/2025 12:00:05
--- OUTSIDE RECORDS SUMMARY | 2025-05-07 14:14 | XMS_ITS | Clinical Summary ---
Author Organization [facility] Address [address] [place] [id number] Care Team Providers Care Functional Architect Name Role Phone Unknown, Notinfile Primary Care Provider Unavail able Ryland Olson MD Unavailable [phone] Allergies No known active allergies Medications amLODIPine (NORVASC) 10 mg tabletIndications: hypertension Take 10 mg by mouth every morning 1 03/18/20 19 Active lisinopril (PRINIVIL,ZESTRIL) 20 mg tabletIndications: hypertension Take 20 mg by mouth every morning 1 03/18/20 19 Active aspirin 81 mg enteric coated tabletIndications: primary prevention Take 81 mg by mouth every morning Active cholecalciferol (VITAMIN D-3) 5,000 unit capsuleIndications :Vitamin D Deficiency Take 5,000 Units by mouth every morning Active ibuprofen (ibuprofen) 200 mg tab/cap Take 400 mg by mouth every 6 (six) hours as needed for pain Active oxyCODONE (ROXICODONE) 5 mg immediate release tabletIndications: Pain Take 1 tablet (5 mg total) by mouth every 4 (four) hours as needed for pain for up to 8 doses 8 tablet 05/25/20 Active Additional Information Patient not taking.Reported on 06/07/2019 ondansetron ODT (ZOFRAN-ODT) 4 mg disintegrating tabletIndications: Nausea and Vomiting Take 1 tablet (4 mg total) by mouth every 6 (six) hours as needed for nausea or vomiting for up to 8 doses 8 tablet 05/25/20 19 Active Active Problems Problem Noted Date Diagnosed Date Primary hyperparathyroidism 03/05/2019 Overview (03/05/2019): Added automatically from request for surgery [id number] Surgical History Surgery Date Site/Laterality Comments HERNIA REPAIR Hernia repair TONSILLECTOMY PARATHYROID GLAND SURGERY Medical History Medical History Date Comments Hyperlipidemia Hyperlipidemia Hyperparathyroidism Hypercalcemia COPD (chronic obstructive pu lmonary disease) Hypertension Vitamin D deficiency Heart murmur as a child, sinc e resolved no further workup was indicated. Acid reflux Family History Medical History Relation Name Comments Liver cancer Brother Heart disease Father Other Other No history of h ormones; Heart disease Paternal Grandfather Lung cancer Sister Relation Name Status Comments Brother Father Other Paternal Grandfather Sister Social History Tobacco Use Types Packs/Day Years Used Date Smoking Tobacco: Former Cigarettes 2 50.2 1 969 - 10/23/2018 Smokeless Tobacco: Never Alcohol Use Standard Drinks/Week Comments Not Currently 0 (1 standard drink = 0.6 oz pur e alcohol) AUDIT-C Answer Date Recorded Frequency of Alcohol Consumption Never 04/12/2019 Average Number of Drinks Not on file 019 Frequency of Binge Drinking Not on file 03/25 Sex and Gender Information Value Date Recorded Sex Assigned at Not on file Legal Sex Male 7:42 PM [employer]KE[employer] Gender Identity Not on file Sexual Orientation Not on file Obstetrics History Last Filed Vital Signs Vital Sign Reading Time Taken Comments Blood Pressure 130/69 05/25/2019 11:00 AM CDT Pulse 63 05/25/2019 11:00 AM CDT Temperature 36.4 C (97.5 F) 05/25/2019 11:00 AM CDT Respiratory Rate 18 05/25/2019 11:00 AM CDT Oxygen Saturation 94% 05/25/2019 11:00 AM CDT Inhaled Oxygen Concentration - - Weight 68 kg (150 lb) 06/07/2019 1:41 PM [employer] W[employer]ER Height 177.8 cm (5' 10) 06/07/2019 1:41 PM [employer]KEIN W[employer]ER Body Mass Index 21.52 06/07/2019 1:41 PM [employer]KEIN WINDER Plan of Treatment Not on file [place] [address] ACCESS ANTHEM ACCESS Member Subscriber Plan / Payer (Ef fective 2018-Present) Name:Jeff Whitmore Relation to Subscriber:Self Name:Jeff Whitmore Payer ID:[id number] (NAIC) Type:[employer] Address: [place] [address] Advance Directives For more information, please contact: [phone] * Full Code (Latest Code Status on File) Date Activated Date Inactivated Comments 05/25/2019 11:00 AM 05/25/2019 10:22 PM Care Teams Functional Architect Relationship Specialty Start Date End Date Unknown, Notinfile PCP - General 06/07/19 Ryland Olson MD 06/07/19
== END 2025-05-07 12:34 | disposition home or self-care (01) ==
PROVIDERS: PCP Internal Medicine; Visit Provider Internal Medicine
DX: Z12.2 Encounter for screening for malignant neoplasm of respiratory organs (principal); F17.210 Nicotine dependence, cigarettes, uncomplicated; E04.2 Nontoxic multinodular goiter
CPT/HCPCS: 71271; 76536